=== PATIENT | male | born 1940 | race Caucasian/White ===

== ENCOUNTER 2017-02-02 08:22 | Day surgery (SDC) | payer MEDICARE, OTHER ==
--- NOTE | ~2017-02-02 | EGD ---
EGD REPORT [facility] [address] [address] NAME: OMERO GREGORIO : 44 [place] [facility] [place] [id number] AGE: 76 ADM/REG DATE : 02/02/17 MR#: [id number] REPORT SERV DATE: 02/02/17 DICTATED BY: GINGER CAMARILLO DATE: 02/02/17 REPORT STATUS : Draft TRANSCRIBED BY: [facility] DATE: 02/02/17 Endoscopy Center Patient Name: Omero Gregorio Date of : 1940 Attending MD: JAN CAMARILLO MD Procedure Date No Time: 02/02/2017 Procedure: Upper GI endoscopy Indications: Chest pain (non cardiac) Referring MD: Meenu Gordillo Medicines: See the Anesthesia note for documentation of the administered medications Complications: No immediate complications. Estimated blood loss: Minimal. Procedure: Pre-Anesthesia Assessment: - ASA Grade Assessment: II - A patient with mild systemic disease. - Prior to the procedure, a History and Physical was performed, and patient medications and allergies were reviewed. The patient's tolerance of previous anesthesia was also reviewed. The risks and benefits of the procedure and the sedation options and risks were discussed with the patient. All questions were answered, and informed consent was obtained. Prior Anticoagulants: The patient has taken no previous anticoagulant or antiplatelet agents. After reviewing the risks and benefits, the patient was deemed in satisfactory condition to undergo the procedure. After obtaining informed consent, the endoscope was passed under direct vision. Throughout the procedure, the patient's blood pressure, pulse, and oxygen saturations were monitored continuously. The GIF H190 [id number] was introduced through the mouth, and advanced to the second part of duodenum. The upper GI endoscopy was accomplished without difficulty. The patient tolerated the procedure well. Findings: The examined duodenum was normal. Diffuse mild inflammation characterized by congestion (edema) and erythema was found in the gastric antrum. Biopsies were taken with a cold forceps for histology. The cardia and gastric fundus were normal on retroflexion. The examined esophagus was normal. Impression: - Normal examined duodenum. EGD REPORT [address] [address] NAME: OMERO GREGORIO : [birth year] STATUS : REG [facility]#: [id number] AGE: 76 ADM/REG DATE : 02/02/17 MR#: [id number] REPORT SERV DATE: 02/02/17 DICTATED BY: GINGER CAMARILLO DATE: 02/02/17 REPORT STATUS : Draft TRANSCRIBED BY: [email or web address] DATE: 02/02/17 - Gastritis. Biopsied. - Normal esophagus. Recommendation: - Patient has a contact number available for emergencies. The signs and symptoms of potential delayed complications were discussed with the patient. Return to normal activities tomorrow. Written discharge instructions were provided to the patient. - Regular diet. - Discharge patient to home. - Continue present medications. - Await pathology results. Procedure Code(s): --- Professional --- 07996, Esophagogastroduodenoscopy, flexible, transoral; with biopsy, single or multiple Diagnosis Code(s): --- Professional --- K29.70, Gastritis, unspecified, without bleeding R07.89, Other chest pain CPT copyright 2013 [employer]. All rights reserved. The codes documented in this report are preliminary and upon public weigher review may be revised to meet current compliance requirements. JAN CAMARILLO MD 02/02/2017 10:12 AM This report has been signed electronically. Number of Addenda: 0 Note Initiated On: 02/02/2017 10:02 AM Scope Withdrawal Time 0 hours 0 minutes 0 seconds [address] [place] [address]
--- NOTE | ~2017-02-02 | EGD ---
EGD REPORT [facility] [address] [address] NAME: OMERO GREGORIO : 44 [place] : [place] [facility] [place] [id number] AGE: 76 ADM/REG DATE : 02/02/17 MR#: [id number] REPORT SERV DATE: 02/02/17 DICTATED BY: GINGER CAMARILLO DATE: 02/02/17 REPORT STATUS : Draft [facility]: [facility] DATE: 02/02/17 Endoscopy Center Patient Name: Omero Gregorio Date of : 1940 Attending MD: JAN CAMARILLO MD Procedure Date No Time: 02/02/2017 Procedure: Colonoscopy Indications: Follow-up for history of adenomatous polyps in the colon Referring MD: Meenu Gordillo Medicines: See the Anesthesia note for documentation of the administered medications Complications: No immediate complications. Estimated blood loss: Minimal. Procedure: Pre-Anesthesia Assessment: - ASA Grade Assessment: II - A patient with mild systemic disease. - Prior to the procedure, a History and Physical was performed, and patient medications and allergies were reviewed. The patient's tolerance of previous anesthesia was also reviewed. The risks and benefits of the procedure and the sedation options and risks were discussed with the patient. All questions were answered, and informed consent was obtained. Prior Anticoagulants: The patient has taken no previous anticoagulant or antiplatelet agents. After reviewing the risks and benefits, the patient was deemed in satisfactory condition to undergo the procedure. After I obtained informed consent, the scope was passed under direct vision. Throughout the procedure, the patient's blood pressure, pulse, and oxygen saturations were monitored continuously. The PCF [id number] was introduced through the anus and advanced to the cecum, identified by appendiceal orifice and ileocecal valve. The ileocecal valve, appendiceal orifice and rectum were photographed. The entire colon was examined. The colonoscopy was performed without difficulty. The patient tolerated the procedure well. The quality of the bowel preparation was adequate. Findings: The perianal and digital rectal examinations were normal. A flat polyp was found in the mid ascending colon. The polyp was 12 mm in size. The polyp was removed with a piecemeal technique using a cold snare. Resection and retrieval were complete. A sessile polyp was found in the mid transverse colon. The polyp was 4 EGD REPORT [place] [address] [place]. [address] NAME: OMERO GREGORIO : [birth year] STATUS : REG [facility]#: [id number] AGE: 76 ADM/REG DATE : 02/02/17 MR#: [id number] REPORT SERV DATE: 02/02/17 DICTATED BY: GINGER CAMARILLO DATE: 02/02/17 REPORT STATUS : Draft TRANSCRIBED BY: [facility] DATE: 02/02/17 mm in size. The polyp was removed with a cold snare. Resection and retrieval were complete. Two sessile polyps were found in the descending colon. The polyps were small in size. These polyps were removed with a cold snare. Resection and retrieval were complete. A few medium-mouthed diverticula were found in the sigmoid colon. Non-bleeding internal hemorrhoids were found during retroflexion and were Grade I (internal hemorrhoids that do not prolapse). No other significant abnormalities were identified in a careful examination of the remainder of the colon. Impression: - One 12 mm polyp in the mid ascending colon. Resected and retrieved. - One 4 mm polyp in the mid transverse colon. Resected and retrieved. - Two small polyps in the descending colon. Resected and retrieved. - Diverticulosis in the sigmoid colon. - Non-bleeding internal hemorrhoids. Recommendation: - Patient has a contact number available for emergencies. The signs and symptoms of potential delayed complications were discussed with the patient. Return to normal activities tomorrow. Written discharge instructions were provided to the patient. - Regular diet. - Discharge patient to home. - High fiber diet indefinitely. - Await pathology results. - Repeat colonoscopy in 3 years for surveillance. Procedure Code(s): --- Professional --- 74257, Colonoscopy, flexible, proximal to splenic flexure; with removal of tumor(s), polyp(s), or other lesion(s) by snare technique Diagnosis Code(s): --- Professional --- D12.4, Benign neoplasm of descending colon D12.3, Benign neoplasm of transverse colon D12.2, Benign neoplasm of ascending colon K64.0, First degree hemorrhoids K57.30, Diverticulosis of large intestine without perforation or abscess without bleeding Z86.010, Personal history of colonic polyps CPT copyright 2013 [employer]. All rights reserved. EGD REPORT [facility] [address] [place]. [address] NAME: OMERO GREGORIO : 44 STATUS : REG [facility]#: [id number] AGE: 76 ADM/REG DATE : 02/02/17 MR#: [id number] REPORT SERV DATE: 02/02/17 DICTATED BY: GINGER CAMARLILO DATE: 02/02/17 REPORT STATUS : Draft TRANSCRIBED BY: [employer] DATE: 02/02/17 The codes documented in this report are preliminary and upon tenter review may be revised to meet current compliance requirements. JAN CAMARILLO MD 02/02/2017 10:39 AM This report has been signed electronically. Number of Addenda: 0 Note Initiated On: 02/02/2017 9:59 AM Scope Withdrawal Time 0 hours 13 minutes 21 seconds [address] [place] [address]
[~2017-02-02 08:22] MED LIST: FERROUS SULF325 M1 PO; GLUCCHONDR PO; GLUCOPHAGE1000 MG PO; NIACIN 500 PO; PRAVACHOL40 MG PO; PRILO PO; PRIN20 PO; VITAMIN D31000 UNIT PO
== END 2017-02-02 23:59 | disposition home or self-care (01) ==
LOC: DMU 08:22
PROVIDERS: Internal Medicine Gastroenterology
PROC: 0DBL8ZZ Excision of Transverse Colon, Via Natural or Artificial Opening Endoscopic (ICD-10-PCS; 2017-02-02)
PROC: 0DBK8ZZ Excision of Ascending Colon, Via Natural or Artificial Opening Endoscopic (ICD-10-PCS; principal; 2017-02-02 10:00)
PROC: 0DBM8ZZ Excision of Descending Colon, Via Natural or Artificial Opening Endoscopic (ICD-10-PCS; 2017-02-02 10:00)
DX: D12.2 Benign neoplasm of ascending colon (principal); K63.5 Polyp of colon; K29.70 Gastritis, unspecified, without bleeding; R07.89 Other chest pain; I10 Essential (primary) hypertension; E78.00 Pure hypercholesterolemia, unspecified; E11.9 Type 2 diabetes mellitus without complications
CPT/HCPCS: 82962; 88305